=== PATIENT | female | born 1940 | race Caucasian/White ===

== ENCOUNTER 2017-10-24 22:14 | Inpatient (IN) | payer OTHER ==
[~2017-10-24] VITALS: Ht 162.6 cm; Wt 79.2 kg
[~2017-10-24 22:14] MED LIST: ACTOS45 MG PO; ADULT LOW DOSE81 M1 PO; ALDACTONE25 MG PO; AMLODIPINE BESY10 MG PO; ANASTROZOLE1 MG PO; APRESOLINE100 MG PO; ASPIRIN E.C.81 M1 PO; ASPIRIN81 M1; ATENOLOL100 M1 PO; BYSTOLIC10 MG PO; CEFTIN250 MG PO; CLONIDINE HCL0.1 MG PO; CLOPIDOGREL75 MG PO; DIOVAN160 MG PO; DIOVAN320 MG PO; DOXAZOSIN MESYLA2 MG PO; Diabeta,Micronase PO; FENOFIBRATE160 M1 PO; GLUCOPHAGE500 MG PO; HYDROCHLOROTHIA25 MG; HYDROCHLOROTHIA25 MG PO; Hydrodiuril,Oretic,E PO; K-LOR20 MEQ; Klor-Con M20 PO; LASIX20 MG PO; LIPITOR40 MG; LIPITOR40 MG PO; LOTENSIN40 MG PO; Levothroid,Synthroid PO; Lopressor PO; NEXIUM20 MG PO; OXYBUTYNIN CHLOR5 MG PO; OXYGEN MC; PLAVIX75 MG PO; PRAVASTATIN SOD40 MG PO; PROCARDIA XL30 MG; PROCARDIA XL30 MG PO; PROCARDIA XL60 MG PO; Procardia XL,Adalat PO; SPIRONOLACTONE25 MG PO; SYNTHROID100 MCG; SYNTHROID100 MCG PO; TRADJENTA5 MG PO; VITAMIN D31000 UNI2 PO; VITAMIN D32000 UNI1 PO; ZESTRIL20 MG; Zestril,Prinivil PO
[2017-10-24 22:53] LABS: HEMATOCRIT 28.2 % (36.0-46.0); HEMOGLOBIN 9.2 G/DL (11.9-15.5); MCH 31.4 PG (29.0-34.0); MCHC 32.6 G/DL (30.0-36.0); MCV 96.2 FL (83-99); PLATELET COUNT 231 K/uL (156-360); RBC DIS.WIDTH-CV 14.6 % (11.8-14.6); RBC DIS.WIDTH-SD 51.5 % (39-53); RED BLOOD COUNT 2.93 M/uL (3.80-5.20); WHITE BLOOD COUNT 5.5 K/uL (4.1-10.2)
[2017-10-24 23:04] LABS: ALBUMIN 3.4 g/dL (3.2-4.8)
[2017-10-24 23:05] LABS: CHLORIDE 99 mEq/L (99-109); POTASSIUM 3.9 mEq/L (3.7-5.4); SODIUM 137 mEq/L (136-147)
[2017-10-24 23:07] LABS: GLUCOSE 147 mg/dL (70-99); TOTAL PROTEIN 6.2 g/dL (6.4-8.3)
[2017-10-24 23:09] LABS: TOTAL BILIRUBIN 0.6 mg/dL (0.0-1.0)
[2017-10-24 23:10] LABS: ALKALINE PHOSPHATASE 83 IU/L (3-129)
[2017-10-24 23:11] LABS: CREATININE 6.5 mg/dL (0.6-1.3); GFR ESTIMATE (CALCULATED) 7 mL/min/
[2017-10-24 23:12] LABS: AST (GOT) 18 IU/L (2-34); UREA NITROGEN (BUN) 52 mg/dL (9-23)
[2017-10-24 23:14] LABS: ALT (GPT) 13 IU/L (3-49); LIPASE 159 U/L (1.0-51.0)
[2017-10-25] VITALS (9 sets, daily range): BP systolic 127–215; BP diastolic 48–97
[2017-10-25 01:21] LABS: TROP-I INTERPRETATION NEGATIVE; TROPONIN-I 0.05 ng/mL (0.0-0.30)
[2017-10-25] MEDS ORDERED: AVAPRO150 MG PO (01:49)
[2017-10-25 01:50] LABS: APPEARANCE CLEAR ((CLEAR)); BILIRUBIN NEGATIVE; BLOOD NEGATIVE; COLOR YELLOW ((YELLOW)); GLUCOSE (STRIP) 150; KETONES 5; LEUKOCYTES SMALL; NITRITE NEGATIVE; PROTEIN (STRIP) >=500; SPECIFIC GRAVITY 1.011 (1.000-1.030); UROBILINOGEN 0.2 MG/DL (0.2-1.0)
[2017-10-25] MEDS ORDERED: RENVELA800 MG PO ×2 (01:50)
[2017-10-25] MEDS ORDERED: PROTONIX40 MG PO (01:50)
[2017-10-25] MEDS ORDERED: PRAVACHOL40 MG PO (01:50)
[2017-10-25] MEDS ORDERED: GENTAMICIN SULF30 GM TP (01:50)
[2017-10-25 01:53] LABS: INTER. NORMALIZED RATIO 1.3
[2017-10-25 01:55] LABS: PTT 30.7 SEC (25-37)
[2017-10-25 01:57] LABS: BACTERIA RARE /HPF; EPITHELIAL CELLS NONE SEEN /HPF; HYALINE CASTS 0-5 /LPF; MUCUS NONE SEEN /LPF; RED BLOOD CELLS 0-5 /HPF (0-5); UCUL ADDED? YES; WHITE BLOOD CELLS 20-30 /HPF (0-5)
[2017-10-25 06:16] LABS: HEMATOCRIT 24.5 % (36.0-46.0); HEMOGLOBIN 7.8 G/DL (11.9-15.5); MCH 30.7 PG (29.0-34.0); MCHC 31.8 G/DL (30.0-36.0); MCV 96.5 FL (83-99); PLATELET COUNT 194 K/uL (156-360); RBC DIS.WIDTH-SD 51.7 % (39-53); RED BLOOD COUNT 2.54 M/uL (3.80-5.20); WHITE BLOOD COUNT 6.3 K/uL (4.1-10.2)
[2017-10-25 10:35] LABS: CHLORIDE 100 MEQ/L (99-109); CREATININE 6.6 MG/DL (0.6-1.3); GFR ESTIMATE (CALCULATED) 6 mL/min/; GLUCOSE 130 mg/dL (70-99); MAGNESIUM 2.2 mg/dl (1.3-2.7); PHOSPHORUS 7.3 mg/dL (2.5-4.9); POTASSIUM 4.1 MEQ/L (3.7-5.4); SODIUM 137 MEQ/L (136-147); UREA NITROGEN (BUN) 53 mg/dL (9-23)
[2017-10-26 00:02] VITALS: BP 127/43
[2017-10-26 04:02] VITALS: BP 119/104
[2017-10-26 05:27] LABS: HEMATOCRIT 24.7 % (36.0-46.0); HEMOGLOBIN 7.7 G/DL (11.9-15.5); MCH 30.7 PG (29.0-34.0); MCHC 31.2 G/DL (30.0-36.0); MCV 98.4 FL (83-99); PLATELET COUNT 239 K/uL (156-360); RBC DIS.WIDTH-CV 15.1 % (11.8-14.6); RBC DIS.WIDTH-SD 54.1 % (39-53); RED BLOOD COUNT 2.51 M/uL (3.80-5.20)
[2017-10-26 06:04] LABS: CHLORIDE 101 MEQ/L (99-109); CREATININE 6.5 MG/DL (0.6-1.3); GFR ESTIMATE (CALCULATED) 7 mL/min/; GLUCOSE 150 mg/dL (70-99); MAGNESIUM 2.2 mg/dl (1.3-2.7); PHOSPHORUS 6.8 mg/dL (2.5-4.9); POTASSIUM 3.8 MEQ/L (3.7-5.4); SODIUM 138 MEQ/L (136-147); UREA NITROGEN (BUN) 54 mg/dL (9-23)
[2017-10-26 08:00] VITALS: BP 139/46
[2017-10-26 11:37] LABS: HEMOGLOBIN A1c (GLYCOHEMOGLOB) 4.8 % (Below 5.7)
[2017-10-26 17:00] VITALS: BP 131/39
[2017-10-26 18:00] VITALS: BP 138/41
[2017-10-26 20:00] VITALS: BP 129/60
[2017-10-27 00:02] VITALS: BP 152/57
[2017-10-27 04:02] VITALS: BP 149/71
[2017-10-27 05:19] LABS: HEMATOCRIT 25.3 % (36.0-46.0); HEMOGLOBIN 7.7 G/DL (11.9-15.5); MCH 30.1 PG (29.0-34.0); MCHC 30.4 G/DL (30.0-36.0); MCV 98.8 FL (83-99); PLATELET COUNT 253 K/uL (156-360); RBC DIS.WIDTH-SD 54.4 % (39-53); RED BLOOD COUNT 2.56 M/uL (3.80-5.20); WHITE BLOOD COUNT 8.2 K/uL (4.1-10.2)
[2017-10-27 05:56] LABS: CHLORIDE 104 MEQ/L (99-109); CREATININE 6.1 MG/DL (0.6-1.3); GFR ESTIMATE (CALCULATED) 7 mL/min/; GLUCOSE 136 mg/dL (70-99); MAGNESIUM 2.1 mg/dl (1.3-2.7); POTASSIUM 3.8 MEQ/L (3.7-5.4); SODIUM 141 MEQ/L (136-147); UREA NITROGEN (BUN) 48 mg/dL (9-23)
[2017-10-27 09:00] VITALS: BP 164/78
[2017-10-27 11:00] VITALS: BP 151/45
[2017-10-27 11:11] LABS: COMMENTS - BLOOD GASES C+; DEVICE NC; O2 FLOW 2 L/MIN; SITE LR ALINE; TOTAL RESP RATE 28 resp/min
[2017-10-27 11:12] LABS: CARBOXY HGB 1.8 % (0-5); O2 SATURATION (CALCULATED) 95.8 % (95-99); PCO2 46 mm Hg (35-45); PO2 70 mm Hg (80-100); pH 7.37 (7.35-7.45)
[2017-10-27 11:13] LABS: BASE EXCESS 1.1 mEq/L (-3 to +3); BICARBONATE 26.6 mEq/L (22-26); METHEMOGLOBIN 0.5 % (0-1.5)
[2017-10-27 13:00] VITALS: BP 155/46
[2017-10-27 13:50] LABS: ALBUMIN 3.3 G/DL (3.2-4.8); ALKALINE PHOSPHATASE 54 IU/L (3-129); ALT (GPT) 10 IU/L (3-49); AST (GOT) 15 IU/L (2-34); DIRECT BILIRUBIN 0.3 mg/dL (0.0-0.3); HIGH-SENS C-REACTIVE PROTEIN 1.58 MG/DL (0.02-0.20); TOTAL BILIRUBIN 0.7 MG/DL (0.0-1.0); TOTAL PROTEIN 5.5 G/DL (6.4-8.3)
[2017-10-27 15:42] LABS: TYPE OF FLUID PD FLUID
[2017-10-27 16:42] LABS: APPEARANCE CLEAR-COLORLESS; BODY FLUID RBC'S < 1000 /MM^3 (0-100); BODY FLUID WBC'S 10 /MM^3 (0-500)
[2017-10-27 17:32] LABS: BODY FLUID EOSINOPHILS 0 % (0-25); MONONUCLEAR WBC'S 90 %; POLYNUCLEAR WBC'S 10 % (0-25)
[2017-10-28] VITALS (11 sets, daily range): BP systolic 142–185; BP diastolic 44–90
[2017-10-28 05:42] LABS: HEMATOCRIT 23.5 % (36.0-46.0); HEMOGLOBIN 7.3 G/DL (11.9-15.5); MCH 31.1 PG (29.0-34.0); MCHC 31.1 G/DL (30.0-36.0); PLATELET COUNT 208 K/uL (156-360); RBC DIS.WIDTH-SD 54.5 % (39-53); RED BLOOD COUNT 2.35 M/uL (3.80-5.20); WHITE BLOOD COUNT 6.1 K/uL (4.1-10.2)
[2017-10-28 06:13] LABS: CHLORIDE 105 MEQ/L (99-109); CREATININE 6.1 MG/DL (0.6-1.3); GFR ESTIMATE (CALCULATED) 7 mL/min/; GLUCOSE 146 mg/dL (70-99); PHOSPHORUS 6.5 mg/dL (2.5-4.9); POTASSIUM 3.6 MEQ/L (3.7-5.4); SODIUM 143 MEQ/L (136-147); UREA NITROGEN (BUN) 44 mg/dL (9-23)
[2017-10-29] VITALS (7 sets, daily range): BP systolic 149–198; BP diastolic 70–82
[2017-10-29 05:21] LABS: HEMATOCRIT 26.8 % (36.0-46.0); HEMOGLOBIN 8.3 G/DL (11.9-15.5); MCH 30.5 PG (29.0-34.0); MCV 98.5 FL (83-99); PLATELET COUNT 229 K/uL (156-360); RBC DIS.WIDTH-CV 14.9 % (11.8-14.6); RBC DIS.WIDTH-SD 53.1 % (39-53); RED BLOOD COUNT 2.72 M/uL (3.80-5.20); WHITE BLOOD COUNT 7.9 K/uL (4.1-10.2)
[2017-10-29 06:16] LABS: CHLORIDE 104 MEQ/L (99-109); CREATININE 6.4 MG/DL (0.6-1.3); GFR ESTIMATE (CALCULATED) 7 mL/min/; GLUCOSE 127 mg/dL (70-99); PHOSPHORUS 5.8 mg/dL (2.5-4.9); POTASSIUM 3.6 MEQ/L (3.7-5.4); SODIUM 143 MEQ/L (136-147); UREA NITROGEN (BUN) 42 mg/dL (9-23)
[2017-10-30 01:05] VITALS: BP 168/72
[2017-10-30 04:21] VITALS: BP 139/90
[2017-10-30 06:11] LABS: HEMATOCRIT 28.5 % (36.0-46.0); MCH 30.7 PG (29.0-34.0); MCHC 31.6 G/DL (30.0-36.0); MCV 97.3 FL (83-99); PLATELET COUNT 248 K/uL (156-360); RBC DIS.WIDTH-CV 14.8 % (11.8-14.6); RBC DIS.WIDTH-SD 52.9 % (39-53); RED BLOOD COUNT 2.93 M/uL (3.80-5.20); WHITE BLOOD COUNT 6.6 K/uL (4.1-10.2)
[2017-10-30 06:37] LABS: CHLORIDE 103 MEQ/L (99-109); CREATININE 6.6 MG/DL (0.6-1.3); GFR ESTIMATE (CALCULATED) 6 mL/min/; GLUCOSE 143 mg/dL (70-99); MAGNESIUM 2.1 mg/dl (1.3-2.7); PHOSPHORUS 5.8 mg/dL (2.5-4.9); POTASSIUM 3.6 MEQ/L (3.7-5.4); SODIUM 147 MEQ/L (136-147); UREA NITROGEN (BUN) 46 mg/dL (9-23)
[2017-10-30 07:24] VITALS: BP 126/58
[2017-10-30 15:25] VITALS: BP 128/90
[2017-10-30 19:01] VITALS: BP 130/65
[2017-10-30 19:09] LABS: TYPE OF FLUID PD FLUID
[2017-10-30 19:28] LABS: APPEARANCE CLEAR/COLORLESS; BODY FLUID RBC'S 0 /MM^3 (0-100); BODY FLUID WBC'S 0 /MM^3 (0-500)
[2017-10-30 22:44] VITALS: BP 131/59; BP 31/59
[2017-10-31 06:12] LABS: BASOPHIL (%) 0.7 % (0-1); BASOPHIL COUNT 0.1 K/uL (0-0.1); EOSINOPHIL (%) 5.1 % (0-5); EOSINOPHIL COUNT 0.4 K/uL (0-0.3); HEMATOCRIT 28.8 % (36.0-46.0); IMMATURE GRANULOCYTE (%) 0.8 % (0.0-0.7); LYMPHOCYTE (%) 8.6 % (15-42); LYMPHOCYTE COUNT 0.6 K/uL (1.0-2.8); MCH 30.4 PG (29.0-34.0); MCHC 31.3 G/DL (30.0-36.0); MCV 97.3 FL (83-99); MONOCYTE (%) 9.8 % (3-12); MONOCYTE COUNT 0.7 K/uL (0-0.8); NEUTROPHIL COUNT 5.6 K/uL (1.8-6.4); PLATELET COUNT 276 K/uL (156-360); RBC DIS.WIDTH-CV 14.5 % (11.8-14.6); RED BLOOD COUNT 2.96 M/uL (3.80-5.20); WHITE BLOOD COUNT 7.5 K/uL (4.1-10.2)
[2017-10-31 06:40] LABS: ALBUMIN 3.1 G/DL (3.2-4.8); CHLORIDE 100 MEQ/L (99-109); CREATININE 6.7 MG/DL (0.6-1.3); GFR ESTIMATE (CALCULATED) 6 mL/min/; GLUCOSE 137 mg/dL (70-99); MAGNESIUM 2.1 mg/dl (1.3-2.7); PHOSPHORUS 6.4 mg/dL (2.5-4.9); POTASSIUM 3.5 MEQ/L (3.7-5.4); SODIUM 142 MEQ/L (136-147); UREA NITROGEN (BUN) 47 mg/dL (9-23)
[2017-10-31 08:00] LABS: THYROTROPIN (TSH) 4.4 MIU/L (0.4-5.5)
[2017-10-31 09:03] VITALS: BP 130/64
[2017-10-31 09:30] VITALS: BP 138/82
[2017-10-31 14:02] VITALS: BP 90/54
[2017-10-31 14:38] VITALS: BP 96/42
[2017-10-31 15:14] VITALS: BP 95/47
[2017-10-31 19:58] VITALS: BP 124/53
[2017-11-01 00:14] VITALS: BP 113/48
[2017-11-01 06:32] LABS: HEMOGLOBIN 8.9 G/DL (11.9-15.5); MCH 30.6 PG (29.0-34.0); MCHC 31.8 G/DL (30.0-36.0); MCV 96.2 FL (83-99); PLATELET COUNT 286 K/uL (156-360); RBC DIS.WIDTH-CV 14.2 % (11.8-14.6); RBC DIS.WIDTH-SD 49.6 % (39-53); RED BLOOD COUNT 2.91 M/uL (3.80-5.20); WHITE BLOOD COUNT 10.6 K/uL (4.1-10.2)
[2017-11-01 06:50] VITALS: BP 123/58
[2017-11-01 06:52] LABS: CHLORIDE 98 MEQ/L (99-109); CREATININE 6.9 MG/DL (0.6-1.3); GFR ESTIMATE (CALCULATED) 6 mL/min/; GLUCOSE 103 mg/dL (70-99); PHOSPHORUS 6.5 mg/dL (2.5-4.9); POTASSIUM 3.9 MEQ/L (3.7-5.4); SODIUM 140 MEQ/L (136-147); UREA NITROGEN (BUN) 49 mg/dL (9-23)
[2017-11-01 11:58] VITALS: BP 130/63
[2017-11-01 15:25] VITALS: BP 127/57
[2017-11-01 20:08] VITALS: BP 107/55
[2017-11-02] VITALS (7 sets, daily range): BP systolic 92–146; BP diastolic 50–91
[2017-11-02 05:45] LABS: BASOPHIL (%) 0.6 % (0-1); BASOPHIL COUNT 0.1 K/uL (0-0.1); EOSINOPHIL (%) 2.1 % (0-5); EOSINOPHIL COUNT 0.3 K/uL (0-0.3); HEMATOCRIT 29.5 % (36.0-46.0); HEMOGLOBIN 9.4 G/DL (11.9-15.5); IMMATURE GRANULOCYTE (%) 0.8 % (0.0-0.7); LYMPHOCYTE (%) 9.6 % (15-42); LYMPHOCYTE COUNT 1.2 K/uL (1.0-2.8); MCH 30.2 PG (29.0-34.0); MCHC 31.9 G/DL (30.0-36.0); MCV 94.9 FL (83-99); MONOCYTE (%) 10.5 % (3-12); MONOCYTE COUNT 1.3 K/uL (0-0.8); NEUTROPHIL (%) 76.4 % (45-76); NEUTROPHIL COUNT 9.5 K/uL (1.8-6.4); PLATELET COUNT 307 K/uL (156-360); RBC DIS.WIDTH-CV 14.1 % (11.8-14.6); RBC DIS.WIDTH-SD 48.7 % (39-53); RED BLOOD COUNT 3.11 M/uL (3.80-5.20); WHITE BLOOD COUNT 12.5 K/uL (4.1-10.2)
[2017-11-02 06:15] LABS: ALBUMIN 3.1 G/DL (3.2-4.8); CHLORIDE 96 MEQ/L (99-109); CREATININE 7.2 MG/DL (0.6-1.3); GFR ESTIMATE (CALCULATED) 6 mL/min/; GLUCOSE 96 mg/dL (70-99); PHOSPHORUS 6.4 mg/dL (2.5-4.9); POTASSIUM 4.1 MEQ/L (3.7-5.4); SODIUM 136 MEQ/L (136-147); UREA NITROGEN (BUN) 58 mg/dL (9-23)
[2017-11-03] VITALS (7 sets, daily range): BP systolic 108–141; BP diastolic 50–70
[2017-11-03 05:57] LABS: BASOPHIL (%) 0.6 % (0-1); BASOPHIL COUNT 0.1 K/uL (0-0.1); EOSINOPHIL (%) 1.9 % (0-5); EOSINOPHIL COUNT 0.2 K/uL (0-0.3); HEMATOCRIT 27.8 % (36.0-46.0); IMMATURE GRANULOCYTE (%) 0.8 % (0.0-0.7); LYMPHOCYTE (%) 9.8 % (15-42); LYMPHOCYTE COUNT 1.2 K/uL (1.0-2.8); MCHC 32.4 G/DL (30.0-36.0); MCV 92.7 FL (83-99); MONOCYTE COUNT 1.4 K/uL (0-0.8); NEUTROPHIL (%) 74.9 % (45-76); NEUTROPHIL COUNT 8.9 K/uL (1.8-6.4); PLATELET COUNT 300 K/uL (156-360); RBC DIS.WIDTH-CV 13.8 % (11.8-14.6); WHITE BLOOD COUNT 11.9 K/uL (4.1-10.2)
[2017-11-03 06:16] LABS: CHLORIDE 93 MEQ/L (99-109); CREATININE 7.3 MG/DL (0.6-1.3); GFR ESTIMATE (CALCULATED) 6 mL/min/; GLUCOSE 92 mg/dL (70-99); POTASSIUM 3.9 MEQ/L (3.7-5.4); SODIUM 134 MEQ/L (136-147); UREA NITROGEN (BUN) 61 mg/dL (9-23)
[2017-11-04] VITALS (9 sets, daily range): BP systolic 112–174; BP diastolic 54–66
[2017-11-04 06:40] LABS: BASOPHIL (%) 0.7 % (0-1); BASOPHIL COUNT 0.1 K/uL (0-0.1); EOSINOPHIL (%) 3.5 % (0-5); EOSINOPHIL COUNT 0.3 K/uL (0-0.3); HEMATOCRIT 27.1 % (36.0-46.0); IMMATURE GRANULOCYTE (%) 0.8 % (0.0-0.7); LYMPHOCYTE (%) 13.2 % (15-42); LYMPHOCYTE COUNT 1.3 K/uL (1.0-2.8); MCH 30.8 PG (29.0-34.0); MCHC 33.2 G/DL (30.0-36.0); MCV 92.8 FL (83-99); MONOCYTE (%) 13.4 % (3-12); MONOCYTE COUNT 1.3 K/uL (0-0.8); NEUTROPHIL (%) 68.4 % (45-76); NEUTROPHIL COUNT 6.5 K/uL (1.8-6.4); PLATELET COUNT 288 K/uL (156-360); RBC DIS.WIDTH-CV 13.7 % (11.8-14.6); RBC DIS.WIDTH-SD 46.2 % (39-53); RED BLOOD COUNT 2.92 M/uL (3.80-5.20); WHITE BLOOD COUNT 9.5 K/uL (4.1-10.2)
[2017-11-04 07:06] LABS: CHLORIDE 91 MEQ/L (99-109); CREATININE 7.7 MG/DL (0.6-1.3); GFR ESTIMATE (CALCULATED) 5 mL/min/; GLUCOSE 89 mg/dL (70-99); POTASSIUM 3.8 MEQ/L (3.7-5.4); SODIUM 134 MEQ/L (136-147); UREA NITROGEN (BUN) 68 mg/dL (9-23)
[2017-11-05] VITALS (8 sets, daily range): BP systolic 136–179; BP diastolic 57–72
[2017-11-06 03:52] VITALS: BP 139/54
[2017-11-06 06:45] VITALS: BP 204/88
[2017-11-06 08:04] VITALS: BP 143/73
[2017-11-06 11:45] VITALS: BP 148/70
[2017-11-06 13:53] LABS: BASOPHIL (%) 0.9 % (0-1); BASOPHIL COUNT 0.1 K/uL (0-0.1); EOSINOPHIL (%) 5.6 % (0-5); EOSINOPHIL COUNT 0.5 K/uL (0-0.3); HEMATOCRIT 26.1 % (36.0-46.0); HEMOGLOBIN 8.8 G/DL (11.9-15.5); IMMATURE GRANULOCYTE (%) 0.7 % (0.0-0.7); LYMPHOCYTE (%) 10.1 % (15-42); LYMPHOCYTE COUNT 0.8 K/uL (1.0-2.8); MCHC 33.7 G/DL (30.0-36.0); MCV 91.9 FL (83-99); MONOCYTE (%) 13.3 % (3-12); MONOCYTE COUNT 1.1 K/uL (0-0.8); NEUTROPHIL (%) 69.4 % (45-76); NEUTROPHIL COUNT 5.6 K/uL (1.8-6.4); PLATELET COUNT 261 K/uL (156-360); RBC DIS.WIDTH-SD 46.6 % (39-53); RED BLOOD COUNT 2.84 M/uL (3.80-5.20); WHITE BLOOD COUNT 8.1 K/uL (4.1-10.2)
[2017-11-06 14:01] LABS: ALBUMIN 2.9 G/DL (3.2-4.8); CHLORIDE 88 MEQ/L (99-109); POTASSIUM 3.5 MEQ/L (3.7-5.4); SODIUM 131 MEQ/L (136-147)
[2017-11-06 14:06] LABS: CREATININE 8.6 MG/DL (0.6-1.3); GFR ESTIMATE (CALCULATED) 5 mL/min/; GLUCOSE 105 mg/dL (70-99); PHOSPHORUS 7.3 mg/dL (2.5-4.9); UREA NITROGEN (BUN) 75 mg/dL (9-23)
== END 2017-11-06 18:42 | DRG 64 ==
LOC: EME 22:14 → 5EAST 10-25 02:28 → EDOF 10-25 02:28 → 4WEST 10-25 02:28 → ENRESERV 10-25 02:29 → 4WEST 10-25 03:01 → ENRESERV 10-28 → 4WEST 10-28 17:26 → ENRESERV 10-28 17:49 → 4EAST 10-28 23:29 → ENRESERV 10-29 20:44 → 5EAST 10-29 21:23
PROVIDERS: Emergency Medicine; Internal Medicine; Internal Medicine Nephrology; Physician Assistant; Student in an Organized Health Care Education/Training Program
PROC: 03HY32Z Insertion of Monitoring Device into Upper Artery, Percutaneous Approach (ICD-10-PCS; principal; 2017-10-25)
PROC: 5A09357 Assistance with Respiratory Ventilation, Less than 24 Consecutive Hours, Continuous Positive Airway Pressure (ICD-10-PCS; principal; 2017-10-25)
PROC: 05HM33Z Insertion of Infusion Device into Right Internal Jugular Vein, Percutaneous Approach (ICD-10-PCS; 2017-11-05)
PROC: B543ZZA Ultrasonography of Right Jugular Veins, Guidance (ICD-10-PCS; 2017-11-05)
PROC: 5A1D70Z Performance of Urinary Filtration, Intermittent, Less than 6 Hours Per Day (ICD-10-PCS; 2017-11-06)
DX: I61.5 Nontraumatic intracerebral hemorrhage, intraventricular (principal); N18.6 End stage renal disease; J96.01 Acute respiratory failure with hypoxia; I16.1 Hypertensive emergency; I50.30 Unspecified diastolic (congestive) heart failure; G81.91 Hemiplegia, unspecified affecting right dominant side; N39.0 Urinary tract infection, site not specified; R18.8 Other ascites; I13.2 Hypertensive heart and chronic kidney disease with heart failure and with stage 5 chronic kidney disease, or end stage renal disease; J90 Pleural effusion, not elsewhere classified; F05 Delirium due to known physiological condition; D63.1 Anemia in chronic kidney disease; E03.9 Hypothyroidism, unspecified; E11.22 Type 2 diabetes mellitus with diabetic chronic kidney disease; E11.51 Type 2 diabetes mellitus with diabetic peripheral angiopathy without gangrene; E11.65 Type 2 diabetes mellitus with hyperglycemia; E78.5 Hyperlipidemia, unspecified; I27.20 Pulmonary hypertension, unspecified; I34.0 Nonrheumatic mitral (valve) insufficiency; K21.9 Gastro-esophageal reflux disease without esophagitis; I25.10 Atherosclerotic heart disease of native coronary artery without angina pectoris; E27.8 Other specified disorders of adrenal gland; K59.00 Constipation, unspecified; K66.8 Other specified disorders of peritoneum; I95.9 Hypotension, unspecified; E66.9 Obesity, unspecified; J98.4 Other disorders of lung; I35.0 Nonrheumatic aortic (valve) stenosis; I87.8 Other specified disorders of veins; K42.9 Umbilical hernia without obstruction or gangrene; Z60.2 Problems related to living alone; I25.2 Old myocardial infarction; Z79.82 Long term (current) use of aspirin; Z79.84 Long term (current) use of oral hypoglycemic drugs; Z85.3 Personal history of malignant neoplasm of breast; Z86.73 Personal history of transient ischemic attack (TIA), and cerebral infarction without residual deficits; Z95.5 Presence of coronary angioplasty implant and graft; Z90.710 Acquired absence of both cervix and uterus; Z99.2 Dependence on renal dialysis; Z79.02 Long term (current) use of antithrombotics/antiplatelets; Z91.15 Patient's noncompliance with renal dialysis; Z68.32 Body mass index [BMI] 32.0-32.9, adult; Z98.62 Peripheral vascular angioplasty status
CPT/HCPCS: 36600; 70450; 71045; 71250; 73502; 74176; 74177; 80048; 80053; 80069; 80076; 81003; 82140; 82803; 82948; 83036; 83605; 83690; 83735; 83880; 84100; 84145 90; 84443; 84484; 85025; 85027; 85379; 85610; 85730; 86141; 87040; 87070; 87086; 87205; 87641; 89051; 92610 GN; 93005; 93306; 94002; 94003; 94640; 94760; 94799; 97530 GP; 99281; 99285; C1750; C1894; J0360; J0690; J1644; J1815; J1940; J1953; J2250; J2597; J3010; J7030; J7040; J7050; S0020; S0028